=== PATIENT | male | born 1930 | race Caucasian/White ===

== ENCOUNTER 2017-12-09 18:34 | Inpatient (IN) | payer MEDICARE, OTHER ==
[~2017-12-09] VITALS: Ht 182.9 cm; Wt 65.9 kg
[~2017-12-09 18:34] MED LIST: DOCU-28 PO; HYDR-569 PO; IBUP-1984 PO; OXYC-145 PO
[2017-12-09] MEDS ORDERED: normal saline 1000ML IV soln IVB ONE (19:05)
[2017-12-09] MEDS ORDERED: morphine 4 MG/ML inj SYRINge IV ONE (19:05)
[2017-12-09 19:44] LABS: HEMOGLOBIN 7.8 g/dl (14.0-17.9)
[2017-12-09 19:52] LABS: MEAN CORPUSCULAR HGB CONC 32.9 % (33.0-36.5)
[2017-12-09 19:54] LABS: HEMATOCRIT 23.6 % (42.0-52.0); INR 1.2 INR; MEAN CORPUSCULAR VOLUME 82.1 FL (78-98); MEAN PLATELET VOLUME 8.9 FL (7.4-10.4); PLATELET COUNT 268 X10'3 (140-440); PROTHROMBIN TIME 12.6 SECONDS (9.0-12.0); RED BLOOD COUNT 2.88 X10'6 (4.70-6.10); RED CELL DISTRIBUTION WIDTH 21.2 % (11.5-14.5)
[2017-12-09 19:58] LABS: WHITE BLOOD COUNT 29.8 X10'3 (4.5-11.0)
[2017-12-09 19:59] LABS: ALANINE AMINOTRANSFERASE 12 U/L (12-78); ALKALINE PHOSPHATASE 75 IU/L (46-116); ANION GAP 10 (8-16); ASPARTATE AMINO TRANSFERASE 12 U/L (10-37); BILIRUBIN,TOTAL 1.3 MG/DL (0.1-1.0); BLOOD UREA NITROGEN 21 MG/DL (7-18); BUN/CREATININE RATIO 15.8 (5.4-32.0); CHLORIDE 104 MMOL/L (99-107); CREATININE 1.33 MG/DL (0.60-1.10); GLUCOSE 109 MG/DL (70-104); POTASSIUM 3.3 MMOL/L (3.5-5.1); SODIUM 140 MMOL/L (135-145); TOTAL CARBON DIOXIDE 26.4 MMOL/L (24-32); TOTAL PROTEIN 6.1 G/DL (6.4-8.2); eGFR 51 ML/MIN
[2017-12-09 20:02] LABS: TROPONIN I 0.11 NG/ML (0.0-0.05)
[2017-12-09] MEDS ORDERED: CefTRIAXone 2gm/D5W 50ml 50 ML IV ONE (20:15)
[2017-12-09] MEDS ORDERED: pantoprazole IV 80 MG in normal saline 100ml IV soln 100 ML IV ONE (20:15)
[2017-12-09] MEDS ORDERED: azithromycin/NS 500mg/250ml 250 ML IV ONE (20:15)
[2017-12-09] MEDS ORDERED: normal saline 1000ML IV soln IV ONE (20:15)
[2017-12-09 20:23] LABS: CLARITY,URINE CLEAR (Clear); COLOR,URINE YELLOW (Yellow); GLUCOSE, URINE NEGATIVE (Neg); KETONES,URINE NEGATIVE (Neg); LEUKOCYTE ESTERASE ,URINE NEGATIVE (Neg); NITRITES, URINE NEGATIVE (Neg); OCCULT BLOOD,URINE NEGATIVE (Neg); PH,URINE 5.5 (4.8-8.0); PROTEIN,URINE TRACE mg/dl (Neg)
[2017-12-09 20:25] LABS: UA COLLECTION TYPE CLN CATCH MIDSTREAM
[2017-12-09 20:43] LABS: NUCLEATED RED BLOOD CELLS 2 /100WBC (0-0); TOTAL CELLS COUNTED 100
[2017-12-09 20:44] LABS: ACANTHOCYTES 1+; ANISOCYTOSIS 3+; PLATELET ESTIMATE NORMAL; POIKILOCYTOSIS 1+; POLYCHROMASIA 1+
[2017-12-09 20:45] LABS: HYPOCHROMASIA 1+; SCHISTOCYTES FEW; TEAR DROP CELLS FEW; TOXIC GRANULATION 1+
[2017-12-09 20:57] LABS: BACTERIA,URINE FEW /HPF (Neg); RBC,URINE 0-2 /HPF (0-2); WBC,URINE 0-4 /HPF (0-4)
[2017-12-09 20:58] LABS: MUCUS STRANDS MODERATE /LPF (Neg); SQUAMOUS EPITHELIAL CELL,UR FEW /LPF (FEW)
[2017-12-09] MEDS: pantoprazole 40MG/NS 100ML BAG 100 ML IV SCH ×2 (21:36→21:51)
[2017-12-09] MEDS ORDERED: ondansetron/PF 4mg/2ml inj IV PRN (22:10)
[2017-12-09] MEDS ORDERED: mag hydrox/Alum hydrox/simeth 30ml oral suspension PO PRN (22:10)
[2017-12-09] MEDS ORDERED: magnesium hydroxide 30ml (MOM) UD suspension PO PRN (22:10)
[2017-12-09] MEDS ORDERED: acetaminophen 325mg tablet PO PRN (22:10)
[2017-12-09] MEDS ORDERED: levoFLOXACIN-Levaquin 500mg/D5 100 ML IV ONE (22:21)
[2017-12-09] MEDS ORDERED: docusate sod 100mg capsule PO PRN (22:45)
[2017-12-09 22:50] VITALS: BP 110/50
[2017-12-10] VITALS (11 sets, daily range): BP systolic 92–155; BP diastolic 40–96
[2017-12-10] MEDS ORDERED: furosemide 40mg/4ml inj ONE (00:30)
[2017-12-10] MEDS ORDERED: furosemide 40mg/4ml inj IV ONE (00:30)
[2017-12-10] MEDS ORDERED: albuterol 2.5 MG/3 ML nebule NEB ONE (00:49)
[2017-12-10] MEDS ORDERED: albuterol 2.5 MG/3 ML nebule NEB STA (00:49)
[2017-12-10 01:01] LABS: ABG OXYGEN SATURATION 98.8 % (95-98); ABG PCO2 (T) 50.6 mmHg (35.0-48.0); ABG PH (T) 7.257 (7.350-7.450); ABG PO2 (T) 170.2 mmHg (83-108); ALLEN'S TEST Positive; FCOHb 0.5 % (0.5-1.5); FMetHb 0.5 % (0.3-1.12); FO2Hb 97.8 % (94-100); RESPIRATORY RATE (OBSERVED) 18 b/min; TOTAL HEMOGLOBIN 8.8 G/dl (14.0-18.0)
[2017-12-10] MEDS ORDERED: nitroGLYCERIN 1gm ointment UD TP ONE (01:10)
[2017-12-10] MEDS ORDERED: nitroGLYCERIN 0.4mg SUBLingual tab SL ONE (01:12)
[2017-12-10 01:17] LABS: BASOPHILS # (AUTO) 0.2 X10'3 (0-0.2); BASOPHILS % (AUTO) 0.3 % (0-1); EOSINOPHILS # (AUTO) 0.1 X10'3 (0-0.9); EOSINOPHILS % (AUTO) 0.1 % (0-6); HEMATOCRIT 26.9 % (42.0-52.0); HEMOGLOBIN 8.7 g/dl (14.0-17.9); LYMPHOCYTES # (AUTO) 7.2 X10'3 (1.1-4.8); LYMPHOCYTES % (AUTO) 11.9 % (21-51); MEAN CORPUSCULAR HEMOGLOBIN 27.3 PG (27.0-31.0); MEAN CORPUSCULAR HGB CONC 32.5 % (33.0-36.5); MEAN PLATELET VOLUME 8.4 FL (7.4-10.4); MONOCYTES # (AUTO) 1.5 X10'3 (0-0.9); MONOCYTES % (AUTO) 2.5 % (2-12); NEUTROPHILS # (AUTO) 51.5 X10'3 (1.8-7.7); NEUTROPHILS % (AUTO) 85.2 % (42-75); PLATELET COUNT 331 X10'3 (140-440)
[2017-12-10 01:25] LABS: WHITE BLOOD COUNT 60.5 X10'3 (4.5-11.0)
[2017-12-10 01:28] LABS: ALANINE AMINOTRANSFERASE 17 U/L (12-78); ALBUMIN 3.1 G/DL (3.4-5.0); ALBUMIN/GLOBULIN RATIO 0.9 (1.1-1.5); ALKALINE PHOSPHATASE 81 IU/L (46-116); ANION GAP 8 (8-16); ASPARTATE AMINO TRANSFERASE 11 U/L (10-37); BILIRUBIN,TOTAL 1.1 MG/DL (0.1-1.0); BLOOD UREA NITROGEN 21 MG/DL (7-18); BUN/CREATININE RATIO 16.9 (5.4-32.0); CALCIUM 7.7 MG/DL (8.5-10.1); CHLORIDE 106 MMOL/L (99-107); CREATININE 1.24 MG/DL (0.60-1.10); GLUCOSE 179 MG/DL (70-104); MAGNESIUM 1.7 MG/DL (1.5-2.4); POTASSIUM 3.4 MMOL/L (3.5-5.1); SODIUM 138 MMOL/L (135-145); TOTAL CARBON DIOXIDE 24.3 MMOL/L (24-32); TOTAL PROTEIN 6.5 G/DL (6.4-8.2); eGFR 55 ML/MIN
[2017-12-10] MEDS: pantoprazole 40MG/NS 100ML BAG 100 ML IV SCH ×5 (01:32→22:48)
[2017-12-10 01:34] LABS: ACANTHOCYTES 1+; ANISOCYTOSIS 2+; HYPOCHROMASIA 1+; PLATELET ESTIMATE NORMAL; POIKILOCYTOSIS 2+; POLYCHROMASIA 1+; SCHISTOCYTES FEW; TEAR DROP CELLS FEW; TOTAL CELLS COUNTED 100
[2017-12-10] MEDS: normal saline 1000ml 1,000 ML IV SCH (01:39)
[2017-12-10] MEDS ORDERED: potassium Cl 20 mEq SR tablet PO PRN (03:05)
[2017-12-10] MEDS ORDERED: potassium Cl 40MEQ/NS 500ml 500 ML IV PRN ×2 (03:05)
[2017-12-10] MEDS: HYDROcodone/acetaminophen 5mg/325mg tablet PO SCH ×4 (03:13→18:48)
[2017-12-10 04:11] LABS: BASOPHILS % (AUTO) 0 % (0-1); EOSINOPHILS % (AUTO) 0 % (0-6); HEMATOCRIT 24.1 % (42.0-52.0); HEMOGLOBIN 7.9 g/dl (14.0-17.9); LYMPHOCYTES # (AUTO) 1.6 X10'3 (1.1-4.8); LYMPHOCYTES % (AUTO) 4.2 % (21-51); MEAN CORPUSCULAR HEMOGLOBIN 27.3 PG (27.0-31.0); MEAN CORPUSCULAR HGB CONC 32.8 % (33.0-36.5); MEAN CORPUSCULAR VOLUME 83.4 FL (78-98); MEAN PLATELET VOLUME 9.6 FL (7.4-10.4); MONOCYTES # (AUTO) 0.9 X10'3 (0-0.9); MONOCYTES % (AUTO) 2.5 % (2-12); NEUTROPHILS # (AUTO) 34.5 X10'3 (1.8-7.7); NEUTROPHILS % (AUTO) 93.3 % (42-75); PLATELET COUNT 277 X10'3 (140-440); RED BLOOD COUNT 2.89 X10'6 (4.70-6.10); RED CELL DISTRIBUTION WIDTH 21.6 % (11.5-14.5)
[2017-12-10 04:26] LABS: ALANINE AMINOTRANSFERASE 12 U/L (12-78); ALBUMIN 2.9 G/DL (3.4-5.0); ALBUMIN/GLOBULIN RATIO 0.9 (1.1-1.5); ALKALINE PHOSPHATASE 72 IU/L (46-116); ANION GAP 11 (8-16); ASPARTATE AMINO TRANSFERASE 13 U/L (10-37); BLOOD UREA NITROGEN 21 MG/DL (7-18); BUN/CREATININE RATIO 16.4 (5.4-32.0); CALCIUM 7.1 MG/DL (8.5-10.1); CHLORIDE 106 MMOL/L (99-107); CREATININE 1.28 MG/DL (0.60-1.10); GLUCOSE 121 MG/DL (70-104); POTASSIUM 3.2 MMOL/L (3.5-5.1); SODIUM 143 MMOL/L (135-145); TOTAL CARBON DIOXIDE 25.6 MMOL/L (24-32); TOTAL PROTEIN 6.1 G/DL (6.4-8.2); eGFR 53 ML/MIN
[2017-12-10 05:00] LABS: TOTAL CELLS COUNTED 100
[2017-12-10 05:02] LABS: PLATELET ESTIMATE NORMAL
[2017-12-10 05:03] LABS: ACANTHOCYTES 1+; ANISOCYTOSIS 3+; HYPOCHROMASIA 1+; POIKILOCYTOSIS 2+; POLYCHROMASIA 1+; SCHISTOCYTES FEW; TEAR DROP CELLS FEW
[2017-12-10] MEDS ORDERED: pneumococcal 23-VAL P-sac vacc 25 mcg/0.5ml vial IMVAC ONE (06:30)
[2017-12-10] MEDS: potassium Cl 20 mEq SR tablet PO PRN ×3 (07:57→18:42)
[2017-12-10] MEDS: heparin, porcine 5000 units/ml vial SQ SCH ×2 (07:58→18:42)
[2017-12-10] MEDS: levoFLOXACIN-Levaquin 250mg/D5 50 ML IV SCH (07:58)
[2017-12-10] MEDS: furosemide 20 MG/2 ML vial IV SCH ×2 (09:45→18:42)
[2017-12-10] MEDS: CefTRIAXone 2gm/D5W 50ml 50 ML IV SCH (09:46)
[2017-12-10] MEDS: vancomycin/NS 1 GM ADD-VANTAGE 250 ML IV SCH (09:48)
[2017-12-10] MEDS: oxyCODONE/APAP 5-325mg tablet PO PRN ×2 (12:14→23:27)
[2017-12-10] MEDS: albuterol 2.5 MG/3 ML nebule NEB PRN (20:58)
[2017-12-10] MEDS: lactobacillus rhamnosus 10,000 MMU CELLS/CAPSULE PO SCH (21:08)
[2017-12-10] MEDS: zolpidem 5mg tablet PO PRN (22:48)
[2017-12-11] VITALS (8 sets, daily range): BP systolic 118–138; BP diastolic 49–72
[2017-12-11] MEDS: pantoprazole 40MG/NS 100ML BAG 100 ML IV SCH ×5 (01:00→23:27)
[2017-12-11 06:00] LABS: ABSOLUTE RETICS # 86500 /CUMM (23000-93000); BASOPHILS % (AUTO) 0 % (0-1); EOSINOPHILS % (AUTO) 0 % (0-6); HEMATOCRIT 22.7 % (42.0-52.0); HEMOGLOBIN 7.5 g/dl (14.0-17.9); LYMPHOCYTES # (AUTO) 1.4 X10'3 (1.1-4.8); LYMPHOCYTES % (AUTO) 4.6 % (21-51); MEAN CORPUSCULAR HEMOGLOBIN 27.1 PG (27.0-31.0); MEAN CORPUSCULAR HGB CONC 32.9 % (33.0-36.5); MEAN CORPUSCULAR VOLUME 82.3 FL (78-98); MEAN PLATELET VOLUME 9.4 FL (7.4-10.4); MONOCYTES # (AUTO) 1.1 X10'3 (0-0.9); MONOCYTES % (AUTO) 3.6 % (2-12); NEUTROPHILS # (AUTO) 28.5 X10'3 (1.8-7.7); NEUTROPHILS % (AUTO) 91.8 % (42-75); PLATELET COUNT 280 X10'3 (140-440); RED BLOOD COUNT 2.76 X10'6 (4.70-6.10); RED CELL DISTRIBUTION WIDTH 21.8 % (11.5-14.5); RETICULOCYTE % (AUTO) 3.1 % (0.5-1.5)
[2017-12-11 06:17] LABS: WHITE BLOOD COUNT 31.1 X10'3 (4.5-11.0)
[2017-12-11 06:27] LABS: ALANINE AMINOTRANSFERASE 10 U/L (12-78); ALBUMIN 2.8 G/DL (3.4-5.0); ALBUMIN/GLOBULIN RATIO 0.9 (1.1-1.5); ALKALINE PHOSPHATASE 68 IU/L (46-116); ANION GAP 11 (8-16); ASPARTATE AMINO TRANSFERASE 11 U/L (10-37); BILIRUBIN,TOTAL 0.8 MG/DL (0.1-1.0); BLOOD UREA NITROGEN 23 MG/DL (7-18); BUN/CREATININE RATIO 17.4 (5.4-32.0); CALCIUM 7.3 MG/DL (8.5-10.1); CHLORIDE 106 MMOL/L (99-107); CREATININE 1.32 MG/DL (0.60-1.10); GLUCOSE 109 MG/DL (70-104); MAGNESIUM 1.6 MG/DL (1.5-2.4); POTASSIUM 3.5 MMOL/L (3.5-5.1); SODIUM 142 MMOL/L (135-145); TOTAL CARBON DIOXIDE 25.5 MMOL/L (24-32); eGFR 51 ML/MIN
[2017-12-11 07:12] LABS: ANISOCYTOSIS 3+; ELLIPTOCYTES FEW; HYPOCHROMASIA 1+; PLATELET ESTIMATE NORMAL; POLYCHROMASIA FEW; SCHISTOCYTES FEW; TEAR DROP CELLS FEW
[2017-12-11 07:13] LABS: BANDS% (MANUAL) 2 % (0-10); BASOPHILS % (MANUAL) 5 % (0-1); IMMATURE CELLS 1 % (0-0); LYMPHOCYTES % (MANUAL) 2 % (21-51); METAMYLEOCYTES% (MANUAL) 3 % (0-0); MONOCYTES % (MANUAL) 3 % (2-12); MYELOCYTES % (MANUAL) 3 % (0-0); NEUTROPHILS % (MANUAL) 78 % (42-75); PROMYELOCYTES % (MANUAL) 1 % (0-0); REACTIVE LYMPHOCYTES % 2 % (0-0); TOTAL CELLS COUNTED 100
[2017-12-11] MEDS: levoFLOXACIN-Levaquin 250mg/D5 50 ML IV SCH (08:06)
[2017-12-11] MEDS: lactobacillus rhamnosus 10,000 MMU CELLS/CAPSULE PO SCH ×2 (08:07→20:19)
[2017-12-11] MEDS: furosemide 20 MG/2 ML vial IV SCH (08:08)
[2017-12-11] MEDS: heparin, porcine 5000 units/ml vial SQ SCH ×2 (08:08→20:20)
[2017-12-11] MEDS: oxyCODONE/APAP 5-325mg tablet PO PRN ×3 (09:07→21:12)
[2017-12-11] MEDS: CefTRIAXone 2gm/D5W 50ml 50 ML IV SCH (09:55)
[2017-12-11] MEDS: vancomycin/NS 1 GM ADD-VANTAGE 250 ML IV SCH (10:44)
[2017-12-11 18:31] LABS: LIPASE 59 U/L (73-393); PHOSPHORUS 2.7 MG/DL (2.3-4.5); TROPONIN I 0.14 NG/ML (0.0-0.05)
[2017-12-11] MEDS: zolpidem 5mg tablet PO PRN (23:26)
[2017-12-12] VITALS (11 sets, daily range): BP systolic 89–128; BP diastolic 39–69
[2017-12-12] MEDS: normal saline 1000ml 1,000 ML IV SCH (04:14)
[2017-12-12] MEDS: pantoprazole 40MG/NS 100ML BAG 100 ML IV SCH ×4 (04:42→23:38)
[2017-12-12 07:06] LABS: ABG HCO3 25.6 mmol/L (22.0-26.0); ABG OXYGEN SATURATION 96.6 % (95-98); ABG PCO2 (T) 40.5 mmHg (35.0-48.0); ABG PH (T) 7.418 (7.350-7.450); ABG PO2 (T) 89.8 mmHg (83-108); ALLEN'S TEST Positive; FCOHb 0.7 % (0.5-1.5); FLOW 3 L/min; FMetHb 0.4 % (0.3-1.12); FO2Hb 95.5 % (94-100); RESPIRATORY RATE (OBSERVED) 16 b/min; TOTAL HEMOGLOBIN 10.4 G/dl (14.0-18.0)
[2017-12-12 07:08] LABS: BASOPHILS # (AUTO) 0.1 X10'3 (0-0.2); BASOPHILS % (AUTO) 0.3 % (0-1); EOSINOPHILS % (AUTO) 0 % (0-6); HEMATOCRIT 31.2 % (42.0-52.0); HEMOGLOBIN 10.1 g/dl (14.0-17.9); LYMPHOCYTES # (AUTO) 1.9 X10'3 (1.1-4.8); LYMPHOCYTES % (AUTO) 5.2 % (21-51); MEAN CORPUSCULAR HEMOGLOBIN 28.6 PG (27.0-31.0); MEAN CORPUSCULAR HGB CONC 32.6 % (33.0-36.5); MEAN CORPUSCULAR VOLUME 87.7 FL (78-98); MEAN PLATELET VOLUME 8.9 FL (7.4-10.4); MONOCYTES # (AUTO) 0.8 X10'3 (0-0.9); MONOCYTES % (AUTO) 2.2 % (2-12); NEUTROPHILS # (AUTO) 33.1 X10'3 (1.8-7.7); NEUTROPHILS % (AUTO) 92.3 % (42-75); PLATELET COUNT 236 X10'3 (140-440); RED BLOOD COUNT 3.55 X10'6 (4.70-6.10)
[2017-12-12] MEDS: CefTRIAXone 2gm/D5W 50ml 50 ML IV SCH (07:18)
[2017-12-12] MEDS: heparin, porcine 5000 units/ml vial SQ SCH ×2 (07:19→21:26)
[2017-12-12] MEDS: lactobacillus rhamnosus 10,000 MMU CELLS/CAPSULE PO SCH ×2 (07:19→21:26)
[2017-12-12 07:38] LABS: WHITE BLOOD COUNT 35.9 X10'3 (4.5-11.0)
[2017-12-12 07:43] LABS: ALANINE AMINOTRANSFERASE 11 U/L (12-78); ALBUMIN 2.9 G/DL (3.4-5.0); ALBUMIN/GLOBULIN RATIO 0.9 (1.1-1.5); ALKALINE PHOSPHATASE 78 IU/L (46-116); ANION GAP 10 (8-16); ASPARTATE AMINO TRANSFERASE 18 U/L (10-37); BILIRUBIN,TOTAL 1.4 MG/DL (0.1-1.0); BLOOD UREA NITROGEN 19 MG/DL (7-18); BUN/CREATININE RATIO 15.3 (5.4-32.0); CALCIUM 7.9 MG/DL (8.5-10.1); CHLORIDE 105 MMOL/L (99-107); CREATININE 1.24 MG/DL (0.60-1.10); GLUCOSE 113 MG/DL (70-104); MAGNESIUM 1.7 MG/DL (1.5-2.4); POTASSIUM 3.5 MMOL/L (3.5-5.1); SODIUM 141 MMOL/L (135-145); TOTAL CARBON DIOXIDE 26.2 MMOL/L (24-32); TOTAL PROTEIN 6.2 G/DL (6.4-8.2); eGFR 55 ML/MIN
[2017-12-12] MEDS: albuterol 2.5 MG/3 ML nebule NEB PRN ×2 (08:00→21:09)
[2017-12-12] MEDS ORDERED: furosemide 10 MG/1 ML 10ml inj IV ONE (08:45)
[2017-12-12] MEDS: levoFLOXACIN-Levaquin 250mg/D5 50 ML IV SCH (08:48)
[2017-12-12] MEDS: oxyCODONE/APAP 5-325mg tablet PO PRN ×3 (10:01→21:30)
[2017-12-12] MEDS: vancomycin/NS 1 GM ADD-VANTAGE 250 ML IV SCH (10:01)
[2017-12-12 11:28] LABS: ANISOCYTOSIS 2+; PLATELET ESTIMATE NORMAL; TOTAL CELLS COUNTED 100
[2017-12-12 11:29] LABS: ACANTHOCYTES FEW; ELLIPTOCYTES FEW; POLYCHROMASIA 1+; SCHISTOCYTES FEW
[2017-12-12] MEDS: LACTOSE-FREE FOOD 237ML (BOOST) PO SCH ×2 (13:00→18:00)
[2017-12-12] MEDS ORDERED: normal saline 500ml IV soln 1,000 ML IV ONE (18:05)
[2017-12-12 20:38] LABS: TROPONIN I 0.11 NG/ML (0.0-0.05)
[2017-12-12] MEDS: zolpidem 5mg tablet PO PRN (21:26)
[2017-12-13] MEDS: pantoprazole 40MG/NS 100ML BAG 100 ML IV SCH ×2 (04:49→11:18)
[2017-12-13 05:42] LABS: BASOPHILS % (AUTO) 0 % (0-1); EOSINOPHILS % (AUTO) 0 % (0-6); HEMATOCRIT 26.6 % (42.0-52.0); HEMOGLOBIN 8.8 g/dl (14.0-17.9); LYMPHOCYTES # (AUTO) 1.5 X10'3 (1.1-4.8); LYMPHOCYTES % (AUTO) 5.7 % (21-51); MEAN CORPUSCULAR HEMOGLOBIN 27.9 PG (27.0-31.0); MEAN CORPUSCULAR HGB CONC 33.1 % (33.0-36.5); MEAN CORPUSCULAR VOLUME 84.3 FL (78-98); MEAN PLATELET VOLUME 9.2 FL (7.4-10.4); MONOCYTES # (AUTO) 0.3 X10'3 (0-0.9); NEUTROPHILS # (AUTO) 24.1 X10'3 (1.8-7.7); NEUTROPHILS % (AUTO) 93.3 % (42-75); PLATELET COUNT 213 X10'3 (140-440); RED BLOOD COUNT 3.15 X10'6 (4.70-6.10); RED CELL DISTRIBUTION WIDTH 19.2 % (11.5-14.5)
[2017-12-13 05:48] LABS: WHITE BLOOD COUNT 25.8 X10'3 (4.5-11.0)
[2017-12-13 06:00] VITALS: BP 126/57
[2017-12-13 06:09] LABS: ALANINE AMINOTRANSFERASE 38 U/L (12-78); ALBUMIN 2.7 G/DL (3.4-5.0); ALBUMIN/GLOBULIN RATIO 0.9 (1.1-1.5); ALKALINE PHOSPHATASE 290 IU/L (46-116); ANION GAP 7 (8-16); ASPARTATE AMINO TRANSFERASE 51 U/L (10-37); BILIRUBIN,TOTAL 1.2 MG/DL (0.1-1.0); BLOOD UREA NITROGEN 19 MG/DL (7-18); CALCIUM 7.3 MG/DL (8.5-10.1); CHLORIDE 105 MMOL/L (99-107); CREATININE 1.12 MG/DL (0.60-1.10); GLUCOSE 109 MG/DL (70-104); MAGNESIUM 1.6 MG/DL (1.5-2.4); POTASSIUM 3.5 MMOL/L (3.5-5.1); SODIUM 142 MMOL/L (135-145); TOTAL CARBON DIOXIDE 30.1 MMOL/L (24-32); TOTAL PROTEIN 5.8 G/DL (6.4-8.2); eGFR 62 ML/MIN
[2017-12-13 07:40] LABS: TOTAL CELLS COUNTED 100
[2017-12-13 07:41] LABS: ANISOCYTOSIS 2+; PLATELET ESTIMATE NORMAL; POLYCHROMASIA 1+
[2017-12-13 07:42] LABS: ACANTHOCYTES FEW; ELLIPTOCYTES FEW; SCHISTOCYTES FEW; TOXIC GRANULATION 1+
[2017-12-13] MEDS: lactobacillus rhamnosus 10,000 MMU CELLS/CAPSULE PO SCH ×2 (08:01→19:07)
[2017-12-13] MEDS: CefTRIAXone 2gm/D5W 50ml 50 ML IV SCH (08:02)
[2017-12-13] MEDS: heparin, porcine 5000 units/ml vial SQ SCH ×2 (08:02→19:08)
[2017-12-13] MEDS: LACTOSE-FREE FOOD 237ML (BOOST) PO SCH ×3 (08:11→18:00)
[2017-12-13] MEDS ORDERED: VANCOMYCIN LEVEL IV ONE (09:30)
[2017-12-13 10:00] VITALS: BP 101/57
[2017-12-13] MEDS: oxyCODONE/APAP 5-325mg tablet PO PRN ×3 (11:21→23:15)
[2017-12-13] MEDS: LIDOcaine 5% patch TP SCH (12:14)
[2017-12-13] MEDS: albuterol 2.5 MG/3 ML nebule NEB PRN ×2 (14:43→19:32)
[2017-12-13 18:00] VITALS: BP 108/58
[2017-12-13] MEDS ORDERED: furosemide 20 MG/2 ML vial IV ONE (20:05)
[2017-12-13] MEDS ORDERED: furosemide 20 MG/2 ML vial IV PRN (20:05)
[2017-12-13 22:00] VITALS: BP 101/44
[2017-12-13] MEDS: zolpidem 5mg tablet PO PRN (22:48)
[2017-12-14] VITALS (8 sets, daily range): BP systolic 91–122; BP diastolic 39–67
[2017-12-14 05:56] LABS: BASOPHILS # (AUTO) 0.2 X10'3 (0-0.2); EOSINOPHILS # (AUTO) 0.1 X10'3 (0-0.9); EOSINOPHILS % (AUTO) 0.5 % (0-6); HEMATOCRIT 25.6 % (42.0-52.0); HEMOGLOBIN 8.5 g/dl (14.0-17.9); LYMPHOCYTES # (AUTO) 1.2 X10'3 (1.1-4.8); LYMPHOCYTES % (AUTO) 5.2 % (21-51); MEAN CORPUSCULAR HEMOGLOBIN 27.9 PG (27.0-31.0); MEAN CORPUSCULAR HGB CONC 33.3 % (33.0-36.5); MEAN CORPUSCULAR VOLUME 83.9 FL (78-98); MEAN PLATELET VOLUME 9.9 FL (7.4-10.4); MONOCYTES # (AUTO) 0.5 X10'3 (0-0.9); MONOCYTES % (AUTO) 2.1 % (2-12); NEUTROPHILS # (AUTO) 21.3 X10'3 (1.8-7.7); NEUTROPHILS % (AUTO) 91.2 % (42-75); PLATELET COUNT 193 X10'3 (140-440); RED BLOOD COUNT 3.05 X10'6 (4.70-6.10); RED CELL DISTRIBUTION WIDTH 19.2 % (11.5-14.5); WHITE BLOOD COUNT 23.3 X10'3 (4.5-11.0)
[2017-12-14 06:07] LABS: ALANINE AMINOTRANSFERASE 21 U/L (12-78); ALBUMIN 2.7 G/DL (3.4-5.0); ALBUMIN/GLOBULIN RATIO 0.9 (1.1-1.5); ALKALINE PHOSPHATASE 192 IU/L (46-116); ANION GAP 7 (8-16); ASPARTATE AMINO TRANSFERASE 15 U/L (10-37); BILIRUBIN,TOTAL 0.9 MG/DL (0.1-1.0); BLOOD UREA NITROGEN 17 MG/DL (7-18); BUN/CREATININE RATIO 15.5 (5.4-32.0); CALCIUM 7.7 MG/DL (8.5-10.1); CHLORIDE 105 MMOL/L (99-107); GLUCOSE 105 MG/DL (70-104); MAGNESIUM 1.6 MG/DL (1.5-2.4); POTASSIUM 3.4 MMOL/L (3.5-5.1); SODIUM 142 MMOL/L (135-145); TOTAL CARBON DIOXIDE 30.5 MMOL/L (24-32); TOTAL PROTEIN 5.7 G/DL (6.4-8.2); eGFR 63 ML/MIN
[2017-12-14] MEDS: LACTOSE-FREE FOOD 237ML (BOOST) PO SCH ×3 (08:00→20:30)
[2017-12-14] MEDS: heparin, porcine 5000 units/ml vial SQ SCH ×2 (09:15→20:29)
[2017-12-14] MEDS: atorvastatin 10mg tablet PO SCH (09:16)
[2017-12-14] MEDS: lactobacillus rhamnosus 10,000 MMU CELLS/CAPSULE PO SCH ×2 (09:16→20:29)
[2017-12-14] MEDS: CefTRIAXone 2gm/D5W 50ml 50 ML IV SCH (09:16)
[2017-12-14] MEDS: aspirin 81mg tab.chew PO SCH (09:16)
[2017-12-14] MEDS: LIDOcaine 5% patch TP SCH (09:16)
[2017-12-14] MEDS: pantoprazole 40mg Tablet.DR PO SCH (09:17)
[2017-12-14] MEDS: oxyCODONE/APAP 5-325mg tablet PO PRN (09:17)
[2017-12-14 10:29] LABS: PLATELET ESTIMATE NORMAL; TOTAL CELLS COUNTED 100
[2017-12-14 10:30] LABS: ANISOCYTOSIS 2+
[2017-12-14 10:33] LABS: ELLIPTOCYTES FEW; POLYCHROMASIA 1+; TEAR DROP CELLS FEW
[2017-12-14 10:34] LABS: SCHISTOCYTES FEW; STOMATOCYTES 1+
[2017-12-14] MEDS ORDERED: normal saline 250ml IV soln 250 ML IV ONE (10:50)
[2017-12-14] MEDS: potassium Cl 20mEq in NS 1,000 ML IV SCH (12:32)
[2017-12-14] MEDS: ibuprofen tablet 400 MG TABLET PO PRN ×2 (15:33→21:38)
[2017-12-14] MEDS: albuterol 2.5 MG/3 ML nebule NEB PRN ×2 (21:43→23:52)
[2017-12-14] MEDS ORDERED: furosemide 40mg/4ml inj IV ONE (23:15)
[2017-12-14] MEDS ORDERED: nitroGLYCERIN 1gm ointment UD TP ONE (23:45)
[2017-12-14] MEDS ORDERED: albuterol 2.5 MG/3 ML nebule NEB STA (23:47)
[2017-12-14] MEDS: nitroGLYCERIN 0.4mg SUBLingual tab SL PRN (23:50)
[2017-12-15] MEDS: nitroGLYCERIN 0.4mg SUBLingual tab SL PRN
[2017-12-15] MEDS ORDERED: furosemide 40mg/4ml inj ONE (00:07)
[2017-12-15] MEDS ORDERED: furosemide 40mg/4ml inj IV ONE (00:10)
[2017-12-15] MEDS ORDERED: morphine 4 MG/ML inj SYRINge IV ONE (00:25)
[2017-12-15 00:47] VITALS: BP 119/70
[2017-12-15] MEDS ORDERED: bumetanide 0.25mg/ml 4ml vial IV ONE (01:10)
[2017-12-15 02:00] VITALS: BP 91/52
[2017-12-15 06:00] VITALS: BP 94/58
[2017-12-15 06:04] LABS: MAGNESIUM 1.8 MG/DL (1.5-2.4); POTASSIUM 3.6 MMOL/L (3.5-5.1)
[2017-12-15] MEDS: potassium Cl 20mEq in NS 1,000 ML IV SCH (06:54)
[2017-12-15] MEDS: LIDOcaine 5% patch TP SCH (07:25)
[2017-12-15] MEDS: heparin, porcine 5000 units/ml vial SQ SCH ×2 (07:27→20:00)
[2017-12-15] MEDS: pantoprazole 40mg Tablet.DR PO SCH (07:28)
[2017-12-15] MEDS: lactobacillus rhamnosus 10,000 MMU CELLS/CAPSULE PO SCH ×2 (07:28→20:00)
[2017-12-15] MEDS: aspirin 81mg tab.chew PO SCH (07:28)
[2017-12-15] MEDS: atorvastatin 10mg tablet PO SCH (07:28)
[2017-12-15] MEDS: LACTOSE-FREE FOOD 237ML (BOOST) PO SCH ×3 (07:33→18:00)
[2017-12-15 09:37] LABS: BASOPHILS # (AUTO) 0.5 X10'3 (0-0.2); BASOPHILS % (AUTO) 1.4 % (0-1); EOSINOPHILS % (AUTO) 0 % (0-6); HEMATOCRIT 26.5 % (42.0-52.0); HEMOGLOBIN 8.6 g/dl (14.0-17.9); LYMPHOCYTES # (AUTO) 0.8 X10'3 (1.1-4.8); LYMPHOCYTES % (AUTO) 2.4 % (21-51); MEAN CORPUSCULAR HEMOGLOBIN 27.8 PG (27.0-31.0); MEAN CORPUSCULAR HGB CONC 32.5 % (33.0-36.5); MEAN CORPUSCULAR VOLUME 85.5 FL (78-98); MEAN PLATELET VOLUME 8.8 FL (7.4-10.4); MONOCYTES # (AUTO) 0.9 X10'3 (0-0.9); MONOCYTES % (AUTO) 2.6 % (2-12); NEUTROPHILS % (AUTO) 93.6 % (42-75); PLATELET COUNT 232 X10'3 (140-440); RED CELL DISTRIBUTION WIDTH 19.6 % (11.5-14.5)
[2017-12-15 09:41] LABS: WHITE BLOOD COUNT 33.1 X10'3 (4.5-11.0)
[2017-12-15 09:50] LABS: ALANINE AMINOTRANSFERASE 19 U/L (12-78); ALBUMIN 2.8 G/DL (3.4-5.0); ALBUMIN/GLOBULIN RATIO 0.8 (1.1-1.5); ALKALINE PHOSPHATASE 174 IU/L (46-116); ANION GAP 7 (8-16); ASPARTATE AMINO TRANSFERASE 16 U/L (10-37); BILIRUBIN,TOTAL 0.6 MG/DL (0.1-1.0); BLOOD UREA NITROGEN 22 MG/DL (7-18); BUN/CREATININE RATIO 17.7 (5.4-32.0); CALCIUM 7.7 MG/DL (8.5-10.1); CHLORIDE 103 MMOL/L (99-107); CREATININE 1.24 MG/DL (0.60-1.10); GLUCOSE 140 MG/DL (70-104); POTASSIUM 3.6 MMOL/L (3.5-5.1); SODIUM 142 MMOL/L (135-145); TOTAL CARBON DIOXIDE 31.9 MMOL/L (24-32); TOTAL PROTEIN 6.1 G/DL (6.4-8.2); eGFR 55 ML/MIN
[2017-12-15 09:51] LABS: CLARITY,URINE CLEAR (Clear); COLOR,URINE YELLOW (Yellow); GLUCOSE, URINE NEGATIVE (Neg); KETONES,URINE NEGATIVE (Neg); LEUKOCYTE ESTERASE ,URINE NEGATIVE (Neg); NITRITES, URINE NEGATIVE (Neg); OCCULT BLOOD,URINE MODERATE (Neg); PH,URINE 5.5 (4.8-8.0); PROTEIN,URINE NEGATIVE (Neg); UROBILINOGEN,URINE 0.2 E.U/dL (0.2-1.0)
[2017-12-15 09:53] LABS: UA COLLECTION TYPE FOLEY CATH
[2017-12-15 09:57] LABS: ANISOCYTOSIS 2+; PLATELET ESTIMATE NORMAL; POLYCHROMASIA 1+; TOTAL CELLS COUNTED 100
[2017-12-15 09:58] LABS: ELLIPTOCYTES FEW; PHOSPHORUS 3.4 MG/DL (2.3-4.5); TEAR DROP CELLS FEW
[2017-12-15 10:00] VITALS: BP 107/52
[2017-12-15 10:03] LABS: WBC,URINE 0-4 /HPF (0-4)
[2017-12-15 10:07] LABS: BACTERIA,URINE NONE SEEN /HPF (Neg); SQUAMOUS EPITHELIAL CELL,UR NONE SEEN /LPF (FEW)
[2017-12-15] MEDS: ibuprofen tablet 400 MG TABLET PO PRN ×2 (13:39→20:44)
[2017-12-15] MEDS: hydrocortisone sod succ/PF 100mg/2ml inj. IV SCH (16:10)
[2017-12-15] MEDS: albuterol 2.5 MG/3 ML nebule NEB PRN (16:19)
[2017-12-15 19:00] VITALS: BP 110/63
[2017-12-15] MEDS ORDERED: LORazepam 2 mg/ml vial IV PRN (20:25)
[2017-12-15] MEDS: morphine 4 MG/ML inj SYRINge IV PRN (20:40)
[2017-12-15] MEDS: LORazepam 0.5 MG tablet PO PRN (21:35)
[2017-12-15 22:00] VITALS: BP 100/48
[2017-12-16] MEDS: hydrocortisone sod succ/PF 100mg/2ml inj. IV SCH ×3 (00:03→16:00)
[2017-12-16] MEDS: morphine 4 MG/ML inj SYRINge IV PRN ×2 (02:31→22:35)
[2017-12-16] MEDS: LORazepam 0.5 MG tablet PO PRN ×3 (02:36→19:53)
[2017-12-16 06:00] VITALS: BP 114/61
[2017-12-16] MEDS: LACTOSE-FREE FOOD 237ML (BOOST) PO SCH ×3 (08:00→18:00)
[2017-12-16 08:21] LABS: BASOPHILS # (AUTO) 0.4 X10'3 (0-0.2); BASOPHILS % (AUTO) 0.7 % (0-1); EOSINOPHILS # (AUTO) 0.4 X10'3 (0-0.9); EOSINOPHILS % (AUTO) 0.8 % (0-6); HEMATOCRIT 29.6 % (42.0-52.0); HEMOGLOBIN 9.6 g/dl (14.0-17.9); LYMPHOCYTES # (AUTO) 1.7 X10'3 (1.1-4.8); LYMPHOCYTES % (AUTO) 3.2 % (21-51); MEAN CORPUSCULAR HEMOGLOBIN 27.6 PG (27.0-31.0); MEAN CORPUSCULAR HGB CONC 32.3 % (33.0-36.5); MEAN CORPUSCULAR VOLUME 85.3 FL (78-98); MEAN PLATELET VOLUME 9.9 FL (7.4-10.4); MONOCYTES # (AUTO) 1.6 X10'3 (0-0.9); MONOCYTES % (AUTO) 3.1 % (2-12); NEUTROPHILS # (AUTO) 48.1 X10'3 (1.8-7.7); NEUTROPHILS % (AUTO) 92.2 % (42-75); PLATELET COUNT 346 X10'3 (140-440); RED BLOOD COUNT 3.47 X10'6 (4.70-6.10); RED CELL DISTRIBUTION WIDTH 20.1 % (11.5-14.5)
[2017-12-16 08:26] LABS: WHITE BLOOD COUNT 52.1 X10'3 (4.5-11.0)
[2017-12-16 08:31] LABS: ALANINE AMINOTRANSFERASE 21 U/L (12-78); ALBUMIN/GLOBULIN RATIO 0.9 (1.1-1.5); ALKALINE PHOSPHATASE 155 IU/L (46-116); ANION GAP 6 (8-16); ASPARTATE AMINO TRANSFERASE 12 U/L (10-37); BILIRUBIN,TOTAL 0.7 MG/DL (0.1-1.0); BLOOD UREA NITROGEN 21 MG/DL (7-18); BUN/CREATININE RATIO 18.8 (5.4-32.0); CALCIUM 8.7 MG/DL (8.5-10.1); CHLORIDE 104 MMOL/L (99-107); CREATININE 1.12 MG/DL (0.60-1.10); GLUCOSE 138 MG/DL (70-104); POTASSIUM 4.2 MMOL/L (3.5-5.1); SODIUM 141 MMOL/L (135-145); TOTAL CARBON DIOXIDE 31.4 MMOL/L (24-32); TOTAL PROTEIN 6.4 G/DL (6.4-8.2); eGFR 62 ML/MIN
[2017-12-16 08:38] LABS: ANISOCYTOSIS 2+; NUCLEATED RED BLOOD CELLS 1 /100WBC (0-0); PLATELET ESTIMATE NORMAL; TOTAL CELLS COUNTED 100
[2017-12-16 08:39] LABS: POLYCHROMASIA 1+; TEAR DROP CELLS FEW
[2017-12-16 08:42] LABS: LIPASE 51 U/L (73-393); TROPONIN I 0.15 NG/ML (0.0-0.05)
[2017-12-16] MEDS: aspirin 81mg tab.chew PO SCH (09:30)
[2017-12-16] MEDS: lactobacillus rhamnosus 10,000 MMU CELLS/CAPSULE PO SCH ×2 (09:30→19:56)
[2017-12-16] MEDS: atorvastatin 10mg tablet PO SCH (09:30)
[2017-12-16] MEDS: pantoprazole 40mg Tablet.DR PO SCH (09:30)
[2017-12-16] MEDS: LIDOcaine 5% patch TP SCH (09:31)
[2017-12-16] MEDS: heparin, porcine 5000 units/ml vial SQ SCH ×2 (09:37→19:56)
[2017-12-16 10:30] VITALS: BP 114/55
[2017-12-16] MEDS ORDERED: VANCOMYCIN LEVEL IV ONE (10:30)
[2017-12-16] MEDS ORDERED: morphine 10mg/ml inj. IV PRN ×2 (16:30→16:40)
[2017-12-16] MEDS ORDERED: LORazepam 2 mg/ml vial IV PRN (16:30)
[2017-12-16] MEDS ORDERED: acetaminophen 325mg tablet PO PRN (16:30)
[2017-12-16] MEDS ORDERED: morphine 10mg/0.5ml (conc. morphine) oral syringe PO PRN (16:30)
[2017-12-16 18:00] VITALS: BP 133/73
[2017-12-16] MEDS: docusate sod 100mg capsule PO SCH (18:05)
[2017-12-16] MEDS: sennosides/docusate sodium tablet PO SCH (18:14)
[2017-12-16 20:00] VITALS: BP 133/73
[2017-12-16 22:00] VITALS: BP 120/70
[2017-12-17] MEDS: LORazepam 0.5 MG tablet PO PRN (01:20)
[2017-12-17] MEDS: ibuprofen tablet 400 MG TABLET PO PRN (01:24)
[2017-12-17] MEDS: LACTOSE-FREE FOOD 237ML (BOOST) PO SCH (08:00)
[2017-12-17] MEDS: heparin, porcine 5000 units/ml vial SQ SCH (08:00)
[2017-12-17] MEDS: sennosides/docusate sodium tablet PO SCH (08:00)
[2017-12-17] MEDS: docusate sod 100mg capsule PO SCH (08:00)
[2017-12-17] MEDS: aspirin 81mg tab.chew PO SCH (08:28)
[2017-12-17] MEDS: LIDOcaine 5% patch TP SCH (08:45)
[2017-12-17] MEDS: lactobacillus rhamnosus 10,000 MMU CELLS/CAPSULE PO SCH (08:45)
[2017-12-17] MEDS: pantoprazole 40mg Tablet.DR PO SCH (08:45)
== END 2017-12-17 12:30 | DRG 871 ==
LOC: ER 18:35 → ED HOLD 22:08 → EDBEDREQ 22:19 → ORTHO 4S 22:43
PROVIDERS: ADMIT Internal Medicine; ATTEND Internal Medicine
PROC: 30233N1 Transfusion of Nonautologous Red Blood Cells into Peripheral Vein, Percutaneous Approach (ICD-10-PCS; principal; 2017-12-10)
DX: A41.9 Sepsis, unspecified organism (principal); J96.00 Acute respiratory failure, unspecified whether with hypoxia or hypercapnia; I50.33 Acute on chronic diastolic (congestive) heart failure; J18.9 Pneumonia, unspecified organism; C95.90 Leukemia, unspecified not having achieved remission; R64 Cachexia; N17.9 Acute kidney failure, unspecified; I24.9 Acute ischemic heart disease, unspecified; I38 Endocarditis, valve unspecified; Z68.1 Body mass index [BMI] 19.9 or less, adult; G89.29 Other chronic pain; M19.90 Unspecified osteoarthritis, unspecified site; M54.2 Cervicalgia; M54.9 Dorsalgia, unspecified; R19.7 Diarrhea, unspecified; R51 Headache; R62.7 Adult failure to thrive; D64.9 Anemia, unspecified; Z66 Do not resuscitate; Z51.5 Encounter for palliative care; Z72.0 Tobacco use; Z23 Encounter for immunization; Z82.49 Family history of ischemic heart disease and other diseases of the circulatory system; Z80.9 Family history of malignant neoplasm, unspecified
CPT/HCPCS: 36415; 36600; 70450; 70490; 71045; 71250; 72125; 74176; 80053; 80202; 81001; 82533; 82803; 82948; 83605; 83690; 83735; 83880; 84100; 84132; 84145; 84443; 84484; 85018; 85025; 85045; 85610; 85651; 86140; 86880; 86885; 86900; 86901; 86920; 87040; 87070; 90732; 93005; 93306; 94640; 94760; 96361; 96374; 97110; 97116; 97162; 97530; 99285; A4315; A4333; A6258; C9113; J0456; J0696; J1644; J1720; J1940; J1956; J2270; J3370; J3490; J7030; P9016